=== PATIENT | male | born 1965 | race Two or more races ===

== ENCOUNTER 2023-05-13 10:22 | Emergency (ER) | payer OTHER ==
[~2023-05-13] VITALS: Ht 165.1 cm; Wt 63.5 kg
[2023-05-13] MEDS ORDERED: [UNRECOGNIZED DRUG - OTHER] (10:32)
[2023-05-13] MEDS ORDERED: TAMS0.4C PO (10:32)
[2023-05-13] MEDS ORDERED: [UNRECOGNIZED DRUG - OTHER] (10:32)
[2023-05-13] MEDS ORDERED: NORFLEX (10:33)
== END 2023-05-13 15:32 | disposition home or self-care (01) ==
LOC: ER 10:22
DX: N41.9 Inflammatory disease of prostate, unspecified (principal); Z20.822 Contact with and (suspected) exposure to COVID-19
CPT/HCPCS: 36415; 74177; Q9965

== ENCOUNTER 2025-03-14 11:27 | Emergency (ER) | payer OTHER ==
[~2025-03-14] VITALS: Ht 165.1 cm; Wt 63.5 kg
[~2025-03-14 11:27] MED LIST: NORFLEX; TAMS0.4C PO; [UNRECOGNIZED DRUG - OTHER]; [UNRECOGNIZED DRUG - OTHER]
[2025-03-14] MEDS ORDERED: ARBLI10 MG/1 ML PO (11:56)
[2025-03-14] MEDS ORDERED: NEXIUM2.5 MG PO (11:56)
[2025-03-14 13:04] LABS: BASO % 0.3 % (0.1-1.2); EOS # 0.04 (0.04-0.54); EOS % 0.5 % (0.7-7.0); HEMATOCRIT 44.5 % (40.1-51.0); LYMPH # 1.96 (1.18-3.74); LYMPH % 26.2 % (19.3-53.1); MEAN CORPUSCULAR HEMOGLOBIN 30.4 pg (25.6-32.2); MONO % 5.3 % (4.7-12.5); NEUT # 5.04 (1.56-6.13); NEUT % 67.4 % (34.0-71.1); PLATELET COUNT 357 K/uL (163-369); RED BLOOD COUNT 5.27 M/uL (4.63-6.08); RED CELL DISTRIBUTION WIDTH 12.2 % (11.6-14.4)
[2025-03-14 13:29] LABS: ALBUMIN 4.1 gm/dL (3.4-5.0); BILIRUBIN TOTAL 0.62 mg/dL (0.3-1.2); CALCIUM 9.2 mg/dL (8.5-10.1); CREATININE SERUM 0.97 mg/dL (0.70-1.30); GFR 78.95; GLOBULINA 3.6 G/DL (2.4-3.5); POTASSIUM 3.57 mEq/L (3.5-5.1); TOTAL PROTEIN 7.7 gm/dL (6.4-8.2)
[2025-03-14 13:42] LABS: URINE EPITHELIAL CELLS 3.1 uL (0.0-38.8); URINE RBC 6.9 uL (0.0-20.8); URINE WBC 2.6 uL (0.0-23.2)
[2025-03-14 13:48] LABS: URINE BACTERIA 1.2 uL (0.0-1933); URINE CAST 0.29 uL (0.0-1.40)
[2025-03-14] MEDS ORDERED: KETOROLAC TROMETHAMINE 30 MG VIAL IM STA (13:58)
[2025-03-14 14:06] LABS: URINE BILIRRUBIN NEGATIVE (NEGATIVE); URINE BLOOD TRACE; URINE GLUCOSE NEGATIVE (NEGATIVE); URINE LEUKOCYTE NEGATIVE; URINE NITRATE NEGATIVE; URINE PROTEIN NEGATIVE (NEGATIVE); URINE UROBILINOGEN 0.2 E.U./dl
[2025-03-14] MEDS ORDERED: KETOROLAC TROMETHAMINE 30 MG VIAL ONE (14:07)
[2025-03-14 14:12] LABS: URINE APPEARANCE CLEAR; URINE COLOR YELLOW; URINE KETONE 40 (NEGATIVE)
== END 2025-03-14 16:48 | disposition home or self-care (01) ==
LOC: ER 11:27
PROVIDERS: General Practice
DX: R53.1 Weakness (principal); N41.1 Chronic prostatitis